=== PATIENT | female | born 1985 | race Caucasian/White ===

== ENCOUNTER 2021-12-15 08:30 | Emergency (ER) | payer OTHER | END 2021-12-15 09:13 | disposition home or self-care (01) | LOC: CSHERS 08:30 | DX: R22.43 Localized swelling, mass and lump, lower limb, bilateral (principal); R00.0 Tachycardia, unspecified; E11.9 Type 2 diabetes mellitus without complications; I10 Essential (primary) hypertension | CPT/HCPCS: 99283 ==

== ENCOUNTER 2021-12-16 15:47 | Outpatient (CLI) | payer OTHER | END 2021-12-16 15:48 | disposition home or self-care (01) | LOC: CSHULT 15:47 | PROVIDERS: ATTEND Physician Assistant | DX: M79.89 Other specified soft tissue disorders (principal) | CPT/HCPCS: 93970 ==

== ENCOUNTER 2022-05-28 11:35 | Emergency (ER) | payer OTHER ==
[2022-05-28 12:29] LABS: #Basophils 0.1 10x3/uL (0.0-0.2); #Eosinphils 0.1 10x3/uL (0.0-0.5); #Monocytes 0.6 10x3/uL (0.0-1.1); #Neutrophils 8.4 10x3/uL (1.5-8.4); %Basophils 0.6 % (0.0-2.0); %Eosinophils 1.2 % (0.0-6.0); %Lymphocytes 21.2 % (18.0-47.0); %Monocytes 5.2 % (0.0-10.0); %Neutrophils 70.9 % (40.0-75.0); Hemoglobin 16.6 g/dL (12.0-15.5); Mean Corpuscular HGB CONC 34.1 g/dL (32.0-36.0); Mean Platelet Volume 10.2 fl (7.4-10.4); Platelet Count 200 10x3/uL (150-450); RBC Distribution Width 13.4 % (11.5-14.5); Red Blood Cell (RBC) Count 5.35 10x6/uL (3.90-5.03); White Blood Cell (WBC) Count 11.8 10x3/uL (3.5-10.5)
[2022-05-28 12:54] LABS: ALT (SGPT) 37 U/L (8-55); AST (SGOT) 29 U/L (5-34); Albumin 3.7 g/dL (3.5-5.0); Alkaline Phosphatase 75 U/L (40-110); Anion Gap 16 mmol/L (10-20); BUN (Urea Nitrogen) 13 mg/dL (7.0-18.7); Bilirubin, Total 0.4 mg/dL (0.2-1.2); Calc. Creatinine Clearance 0 mL/min (70-130); Calcium 9.3 mg/dL (7.8-10.44); Carbon Dioxide 27 mmol/L (22-29); Chloride 96 mmol/L (98-107); Estimated GFR 101; Globulin 3.3 g/dL (2.4-3.5); Glucose 461 mg/dL (70-105); Potassium 4.7 mmol/L (3.5-5.1); Sodium 134 mmol/L (136-145)
== END 2022-05-28 13:50 | disposition left against medical advice (07) ==
LOC: CSHERS 11:35
DX: E87.2 Acidosis (principal); L02.215 Cutaneous abscess of perineum; R06.02 Shortness of breath; R00.0 Tachycardia, unspecified; E11.9 Type 2 diabetes mellitus without complications; I10 Essential (primary) hypertension; J44.9 Chronic obstructive pulmonary disease, unspecified; F17.210 Nicotine dependence, cigarettes, uncomplicated
CPT/HCPCS: 36416; 71045; 80053; 83605; 83880; 84484; 85025; 87040; 93005; 94760; 96360

== ENCOUNTER 2023-04-12 10:06 | Emergency (ER) | payer OTHER ==
[2023-04-12 11:14] LABS: #Basophils 0.1 10x3/uL (0.0-0.2); #Eosinphils 0.1 10x3/uL (0.0-0.5); #Monocytes 0.6 10x3/uL (0.0-1.1); #Neutrophils 9.9 10x3/uL (1.5-8.4); %Basophils 0.5 % (0.0-2.0); %Eosinophils 1.1 % (0.0-6.0); %Lymphocytes 17.9 % (18.0-47.0); %Monocytes 4.5 % (0.0-10.0); %Neutrophils 75.5 % (40.0-75.0); Hematocrit 47.5 % (34.9-44.5); Hemoglobin 16.5 g/dL (12.0-15.5); Mean Corpuscular HGB CONC 34.7 g/dL (32.0-36.0); Mean Corpuscular Volume 92.2 fl (81.6-98.3); Platelet Count 281 10x3/uL (150-450); RBC Distribution Width 13.2 % (11.5-14.5); Red Blood Cell (RBC) Count 5.15 10x6/uL (3.90-5.03); White Blood Cell (WBC) Count 13.1 10x3/uL (3.5-10.5)
[2023-04-12 11:20] LABS: BHCG - Serum Negative (NEGATIVE); Pregs Control Background? CLEAR/WHITE (CLR/WHITE); Pregs Control Bar Appear? YES (CONTROL BAR)
[2023-04-12 11:22] LABS: ALT (SGPT) 17 U/L (8-55); AST (SGOT) 16 U/L (5-34); Albumin 3.6 g/dL (3.5-5.0); Alkaline Phosphatase 71 U/L (40-110); Anion Gap 21 mmol/L (10-20); BUN (Urea Nitrogen) 15 mg/dL (7.0-18.7); Bilirubin, Total 0.3 mg/dL (0.2-1.2); Calc. Creatinine Clearance 0 mL/min (70-130); Calcium 9.4 mg/dL (7.8-10.44); Carbon Dioxide 24 mmol/L (22-29); Chloride 95 mmol/L (98-107); Estimated GFR 71; Globulin 3.6 g/dL (2.4-3.5); Potassium 4.4 mmol/L (3.5-5.1); Protein, Total 7.2 g/dL (6.0-8.3); Sodium 136 mmol/L (136-145)
[2023-04-12 11:24] LABS: Glucose 529 mg/dL (70-105)
[2023-04-12 11:37] LABS: Base Excess 0.9 mEq/L (-2 - +2); Calcium, Ionized (venous) 1.09 mmol/L (1.16-1.32); Chloride (VBG) 99 mmol/L (98-106); Hematocrit-VBG 46 % (36.0-47.0); Hemoglobin (Hb) 15.5 g/dL (11.7-15.5); Puncture Site Other Site; RapidComm Collect By lab; Sodium 135.2 mmol/L (133-146); pH (venous) 7.395 (7.32-7.43)
== END 2023-04-12 11:48 | disposition left against medical advice (07) ==
LOC: CSHERS 10:06
DX: A41.9 Sepsis, unspecified organism (principal); R65.20 Severe sepsis without septic shock; L02.214 Cutaneous abscess of groin; L30.4 Erythema intertrigo; E11.9 Type 2 diabetes mellitus without complications; J44.9 Chronic obstructive pulmonary disease, unspecified; F17.210 Nicotine dependence, cigarettes, uncomplicated; I10 Essential (primary) hypertension
CPT/HCPCS: 36415; 80053; 82010; 82805; 83605; 84703; 85025; 87040

== ENCOUNTER 2023-04-12 16:51 | Emergency (ER) | payer OTHER ==
[2023-04-12 17:27] LABS: #Basophils 0.1 10x3/uL (0.0-0.2); #Eosinphils 0.2 10x3/uL (0.0-0.5); #Monocytes 0.8 10x3/uL (0.0-1.1); #Neutrophils 8.1 10x3/uL (1.5-8.4); %Basophils 0.5 % (0.0-2.0); %Eosinophils 1.4 % (0.0-6.0); %Lymphocytes 26.5 % (18.0-47.0); %Monocytes 6.4 % (0.0-10.0); %Neutrophils 64.6 % (40.0-75.0); Hematocrit 45.9 % (34.9-44.5); Hemoglobin 16.3 g/dL (12.0-15.5); Mean Corpuscular HGB CONC 35.5 g/dL (32.0-36.0); Mean Corpuscular Hemoglobin 32.5 pg (27.0-33.0); Mean Corpuscular Volume 91.4 fl (81.6-98.3); Mean Platelet Volume 10.6 fl (7.4-10.4); Platelet Count 282 10x3/uL (150-450); RBC Distribution Width 13.3 % (11.5-14.5); Red Blood Cell (RBC) Count 5.02 10x6/uL (3.90-5.03); White Blood Cell (WBC) Count 12.5 10x3/uL (3.5-10.5)
[2023-04-12] MEDS ORDERED: Ketorolac Tromethamine 30 MG/ML VIAL ONE (18:09)
[2023-04-12] MEDS ORDERED: Morphine 4 MG/ML VIAL ONE (18:09)
[2023-04-12] MEDS ORDERED: HumaLOG 300 UNITS/3 ML VIAL SC PRN ×2 (18:58→19:30)
[2023-04-12] MEDS ORDERED: Ondansetron PF 4 MG/2 ML Vial IVP PRN (18:58)
[2023-04-12] MEDS ORDERED: Dextrose 50% Abboject 50 ML SYRINGE SLOW IVP PRN (18:58)
[2023-04-12] MEDS ORDERED: Ondansetron ODT 4 MG TAB PO PRN (18:58)
[2023-04-12] MEDS ORDERED: Glucagon 1 MG/ML KIT IM PRN (18:58)
[2023-04-12] MEDS ORDERED: Dextrose 5% in Water 1,000 ML IV PRN (18:58)
[2023-04-12] MEDS ORDERED: Acetaminophen 325 MG TAB PO PRN (18:58)
[2023-04-12] MEDS ORDERED: Sodium Chloride 0.9% 1,000 ML IV SCH (19:00)
[2023-04-12] MEDS ORDERED: Ventolin HFA Inhaler 60 PUFF INHALER INH PRN (19:02)
[2023-04-12] MEDS ORDERED: traMADol HCl 50 MG TAB PO PRN (19:04)
[2023-04-12] MEDS ORDERED: Polyethylene Glycol 3350 17 GM Packet PO PRN (19:04)
[2023-04-12] MEDS ORDERED: Cyclobenzaprine 10 MG TAB PO PRN (19:08)
[2023-04-12] MEDS ORDERED: Vancomycin 1 GM in Premix Bag 1 BAG IVPB SCH (19:15)
[2023-04-12] MEDS ORDERED: Electrolyte Replacement Protocol 1 EACH FS SCH (19:15)
[2023-04-12] MEDS ORDERED: Ipratropium/Albuterol 3 ML NEB NEB SCH (19:45)
[2023-04-12] MEDS ORDERED: Clindamycin/D5W 600 MG in Premix Bag 1 BAG IVPB SCH (21:00)
[2023-04-12] MEDS ORDERED: Atorvastatin Calcium 40 MG TAB PO SCH (21:00)
[2023-04-12] MEDS ORDERED: Nicotine 21 MG PATCH TD SCH (21:00)
[2023-04-12] MEDS ORDERED: Cefepime 1 GM in Sodium Chloride 0.9% 100 ML IVPB SCH (21:00)
[2023-04-13] MEDS ORDERED: Ipratropium/Albuterol 3 ML NEB NEB SCH (07:00)
[2023-04-13] MEDS ORDERED: Transdermal Patch Removal TOP SCH (21:00)
== END 2023-04-12 20:30 | disposition left against medical advice (07) ==
LOC: CSHERS 16:51
DX: A41.9 Sepsis, unspecified organism (principal); L30.4 Erythema intertrigo; L02.214 Cutaneous abscess of groin; E11.9 Type 2 diabetes mellitus without complications; F17.210 Nicotine dependence, cigarettes, uncomplicated; J44.9 Chronic obstructive pulmonary disease, unspecified
CPT/HCPCS: 10060; 36415; 36416; 80053; 82010; 82805; 83605; 84703; 85025; 87040; 96365; 96374; 96375; J1885; J2270; J3370; J3490; J7030

== ENCOUNTER 2023-04-21 21:23 | Emergency (ER) | payer OTHER ==
[2023-04-21 22:09] LABS: #Eosinphils 0.1 10x3/uL (0.0-0.5); #Monocytes 0.9 10x3/uL (0.0-1.1); #Neutrophils 10.2 10x3/uL (1.5-8.4); %Basophils 0.3 % (0.0-2.0); %Eosinophils 0.6 % (0.0-6.0); %Lymphocytes 18.8 % (18.0-47.0); %Monocytes 6.4 % (0.0-10.0); %Neutrophils 73.3 % (40.0-75.0); Hematocrit 45.9 % (34.9-44.5); Mean Corpuscular HGB CONC 34.9 g/dL (32.0-36.0); Mean Corpuscular Hemoglobin 32.2 pg (27.0-33.0); Mean Corpuscular Volume 92.4 fl (81.6-98.3); Mean Platelet Volume 10.3 fl (7.4-10.4); Platelet Count 261 10x3/uL (150-450); RBC Distribution Width 13.2 % (11.5-14.5); Red Blood Cell (RBC) Count 4.97 10x6/uL (3.90-5.03)
[2023-04-21 22:21] LABS: BHCG - Serum Negative (NEGATIVE); Pregs Control Background? CLEAR/WHITE (CLR/WHITE); Pregs Control Bar Appear? YES (CONTROL BAR)
[2023-04-21 22:25] LABS: ALT (SGPT) 45 U/L (8-55); AST (SGOT) 25 U/L (5-34); Acetaminophen Less than 10 mcg/mL (10.0-30.0); Albumin 3.7 g/dL (3.5-5.0); Alcohol Less than 10.0 mg/dL (Less than 10); Alkaline Phosphatase 57 U/L (40-110); Anion Gap 18 mmol/L (10-20); BUN (Urea Nitrogen) 15 mg/dL (7.0-18.7); Bilirubin, Total 0.8 mg/dL (0.2-1.2); CK (CPK) 80 U/L (29-168); Calc. Creatinine Clearance 0 mL/min (70-130); Calcium 9.9 mg/dL (7.8-10.44); Carbon Dioxide 29 mmol/L (22-29); Chloride 96 mmol/L (98-107); Estimated GFR 89; Globulin 3.1 g/dL (2.4-3.5); Glucose 287 mg/dL (70-105); Lipase 27 U/L (8-78); Potassium 3.7 mmol/L (3.5-5.1); Protein, Total 6.8 g/dL (6.0-8.3); Salicylate Less than 8.0 mg/dL (15.0-30.0); Sodium 139 mmol/L (136-145)
[2023-04-21 22:31] LABS: Troponin I Less than 0.010 ng/mL (< 0.028)
== END 2023-04-21 23:08 | disposition home or self-care (01) ==
LOC: CSHERS 21:23
DX: R11.10 Vomiting, unspecified (principal); R19.7 Diarrhea, unspecified; D86.0 Sarcoidosis of lung; E78.00 Pure hypercholesterolemia, unspecified; I10 Essential (primary) hypertension; K21.9 Gastro-esophageal reflux disease without esophagitis; F17.210 Nicotine dependence, cigarettes, uncomplicated; E11.9 Type 2 diabetes mellitus without complications; Z79.899 Other long term (current) drug therapy; Z79.84 Long term (current) use of oral hypoglycemic drugs
CPT/HCPCS: 80053; 80307; 82550; 83690; 84484; 84703; 85025; 93005; 96372; 96374; 96375

== ENCOUNTER 2023-04-25 19:40 | Emergency (ER) | payer OTHER ==
[~2023-04-25 19:40] MED LIST: Iopamidol 300 61% 100 ML VIAL FS ONE
[2023-04-25 20:37] LABS: #Basophils 0.1 10x3/uL (0.0-0.2); #Eosinphils 0.1 10x3/uL (0.0-0.5); #Neutrophils 10.7 10x3/uL (1.5-8.4); %Basophils 0.5 % (0.0-2.0); %Eosinophils 0.5 % (0.0-6.0); %Lymphocytes 22.7 % (18.0-47.0); %Monocytes 6.7 % (0.0-10.0); %Neutrophils 68.9 % (40.0-75.0); Hematocrit 48.2 % (34.9-44.5); Hemoglobin 16.9 g/dL (12.0-15.5); Mean Corpuscular HGB CONC 35.1 g/dL (32.0-36.0); Mean Corpuscular Volume 91.3 fl (81.6-98.3); Mean Platelet Volume 11.4 fl (7.4-10.4); Platelet Count 308 10x3/uL (150-450); RBC Distribution Width 13.6 % (11.5-14.5); Red Blood Cell (RBC) Count 5.28 10x6/uL (3.90-5.03); White Blood Cell (WBC) Count 15.5 10x3/uL (3.5-10.5)
[2023-04-25 21:28] LABS: ALT (SGPT) 48 U/L (8-55); AST (SGOT) 20 U/L (5-34); Albumin 3.5 g/dL (3.5-5.0); Alkaline Phosphatase 54 U/L (40-110); Anion Gap 15 mmol/L (10-20); BUN (Urea Nitrogen) 13 mg/dL (7.0-18.7); Bilirubin, Total 0.5 mg/dL (0.2-1.2); Calc. Creatinine Clearance 0 mL/min (70-130); Carbon Dioxide 33 mmol/L (22-29); Chloride 87 mmol/L (98-107); Estimated GFR 66; Globulin 3.3 g/dL (2.4-3.5); Glucose 332 mg/dL (70-105); Potassium 3.3 mmol/L (3.5-5.1); Protein, Total 6.8 g/dL (6.0-8.3); Sodium 132 mmol/L (136-145)
[2023-04-25 21:33] LABS: BHCG - Serum Negative (NEGATIVE); Pregs Control Background? CLEAR/WHITE (CLR/WHITE); Pregs Control Bar Appear? YES (CONTROL BAR)
[2023-04-25 21:35] LABS: Calcium 15.4 mg/dL (7.8-10.44)
[2023-04-25 21:59] LABS: Actual Bicarbonate (HCO3v) 30.6 mEq/L (22-28); Base Excess 6.6 mEq/L (-2 - +2); Calcium, Ionized (venous) 1.61 mmol/L (1.16-1.32); Chloride (VBG) 92 mmol/L (98-106); Hematocrit-VBG 48 % (36.0-47.0); Hemoglobin (Hb) 16.4 g/dL (11.7-15.5); Potassium (VBG) 3.19 mmol/L (3.70-5.30); Puncture Site Other Site; RapidComm Collect By CBN; Sodium 132.7 mmol/L (133-146); pH (venous) 7.489 (7.32-7.43)
[2023-04-25 22:24] LABS: Troponin I Less than 0.010 ng/mL (< 0.028)
[2023-04-25 23:44] LABS: Bilirubin Neg (Negative); Blood, Urine 25 (Negative); Clarity Slightly Cloudy (Clear); Glucose, Urine (Dipstick) Normal (Negative); Ketone, Urine Negative (Negative); Leukocyte 25 (Negative); Nitrite Positive (Negative); Protein, Urine (Dipstick) 100 mg/dl (Neg-Trace); Urobilinogen Normal mg/dL (Less than 2)
[2023-04-25 23:47] LABS: Lactic Acid 3.5 mmol/L (0.5-2.2)
[2023-04-26 00:14] LABS: Bacteria/HPF 3+ HPF (None Seen); CAUTI Indications for Culture Dysuria,urgency,freq; RBC/HPF 0-3 HPF (0-3); Squamous Epithelial 0-3 HPF (0-3)
[2023-04-26 00:16] LABS: Urine Culture Reflex No No
== END 2023-04-25 23:37 | disposition left against medical advice (07) ==
LOC: CSHERS 19:40
DX: Z53.29 Procedure and treatment not carried out because of patient's decision for other reasons (principal)
CPT/HCPCS: 36415; 71045; 74177; 80053; 81001; 82805; 83605; 83880; 84484; 84703; 85025; 85379; 87040; 93005; Q9967

== ENCOUNTER 2023-04-26 10:40 | Inpatient (IN) | payer OTHER ==
[2023-04-26] MEDS ORDERED: Iopamidol 370 76% 100 ML VIAL ONE (10:42)
[2023-04-26 11:38] LABS: #Basophils 0.1 10x3/uL (0.0-0.2); #Eosinphils 0.2 10x3/uL (0.0-0.5); #Monocytes 0.9 10x3/uL (0.0-1.1); #Neutrophils 11.1 10x3/uL (1.5-8.4); %Basophils 0.5 % (0.0-2.0); %Lymphocytes 18.1 % (18.0-47.0); %Neutrophils 73.9 % (40.0-75.0); Hematocrit 48.1 % (34.9-44.5); Hemoglobin 17.2 g/dL (12.0-15.5); Mean Corpuscular HGB CONC 35.8 g/dL (32.0-36.0); Mean Corpuscular Hemoglobin 32.6 pg (27.0-33.0); Mean Corpuscular Volume 91.3 fl (81.6-98.3); Mean Platelet Volume 10.3 fl (7.4-10.4); Platelet Count 275 10x3/uL (150-450); RBC Distribution Width 13.2 % (11.5-14.5); Red Blood Cell (RBC) Count 5.27 10x6/uL (3.90-5.03)
[2023-04-26] MEDS ORDERED: Lorazepam 2 MG/ML VIAL ONE (11:44)
[2023-04-26] MEDS ORDERED: cefTRIAXone (ROCEPHIN) 1 GM VIAL ONE (11:45)
[2023-04-26] MEDS ORDERED: Azithromycin 500 MG VIAL ONE (11:45)
[2023-04-26 11:52] LABS: ALT (SGPT) 50 U/L (8-55); AST (SGOT) 25 U/L (5-34); Albumin 3.6 g/dL (3.5-5.0); Alkaline Phosphatase 55 U/L (40-110); Anion Gap 15 mmol/L (10-20); BUN (Urea Nitrogen) 12 mg/dL (7.0-18.7); Bilirubin, Total 0.6 mg/dL (0.2-1.2); Calc. Creatinine Clearance 0 mL/min (70-130); Carbon Dioxide 32 mmol/L (22-29); Chloride 91 mmol/L (98-107); Estimated GFR 71; Globulin 3.5 g/dL (2.4-3.5); Glucose 292 mg/dL (70-105); Potassium 3.6 mmol/L (3.5-5.1); Protein, Total 7.1 g/dL (6.0-8.3); Sodium 134 mmol/L (136-145)
[2023-04-26] MEDS ORDERED: Promethazine HCl 25 MG in Sodium Chloride 0.9% 50 ML IVPB SCH (12:00)
[2023-04-26 13:49] LABS: SARS-CoV-2 NAA Rapid Test Not Detected (NotDetected)
[2023-04-26] MEDS ORDERED: Ondansetron PF 4 MG/2 ML Vial IVP PRN (16:18)
[2023-04-26] MEDS ORDERED: Acetaminophen 650 MG/20.3 ML UDCUP PO PRN (22:03)
[2023-04-26] MEDS: methylPREDNISolone Sod Succ 40 MG VIAL IVP SCH (23:55)
[2023-04-27] MEDS ORDERED: Nicotine 21 MG PATCH TOP PRN (05:02)
[2023-04-27] MEDS: methylPREDNISolone Sod Succ 40 MG VIAL IVP SCH ×4 (05:27→22:19)
[2023-04-27] MEDS ORDERED: ALPRAZolam 0.25 MG TAB PO PRN (05:37)
[2023-04-27] MEDS ORDERED: Lactated Ringer's 1,000 ML IV SCH (06:15)
[2023-04-27] MEDS: Ipratropium/Albuterol 3 ML NEB NEB SCH ×3 (07:05→18:42)
[2023-04-27] MEDS ORDERED: Dextrose 5% in Water 1,000 ML IV PRN (08:11)
[2023-04-27] MEDS ORDERED: Dextrose 50% Abboject 50 ML SYRINGE SLOW IVP PRN (08:11)
[2023-04-27] MEDS ORDERED: Glucagon 1 MG/ML KIT IM PRN (08:11)
[2023-04-27] MEDS: DULoxetine 30 MG CAP PO SCH ×2 (09:04→09:12)
[2023-04-27] MEDS: Sodium Chloride 0.9% 1,000 ML IV SCH ×3 (09:30→20:23)
[2023-04-27] MEDS ORDERED: Calcitonin,Salmon,Synthetic 400 UNITS/2 ML SC SCH (10:30)
[2023-04-27] MEDS ORDERED: Zoledronic Acid 4 MG in Sodium Chloride 0.9% 100 ML IVPB SCH (10:30)
[2023-04-27] MEDS: cefTRIAXone\\ROCEPHIN 2 GM in Sodium Chloride 0.9% 100 ML IVPB SCH (12:00)
[2023-04-27] MEDS: HumaLOG 300 UNITS/3 ML VIAL SC PRN ×3 (12:50→22:13)
[2023-04-27] MEDS: Azithromycin 500 MG in Sodium Chloride 0.9% 250 ML 250 ML IVPB SCH (13:09)
[2023-04-27] MEDS: ALPRAZolam 0.25 MG TAB PO PRN ×2 (14:44→20:37)
[2023-04-27] MEDS ORDERED: Lantus 1000 UNITS/10 ML VIAL SC SCH (16:00)
[2023-04-27] MEDS ORDERED: Nicotine 21 MG PATCH TD SCH (16:00)
[2023-04-27 16:12] LABS: #Monocytes 0.7 10x3/uL (0.0-1.1); #Neutrophils 11.9 10x3/uL (1.5-8.4); %Basophils 0.1 % (0.0-2.0); %Eosinophils 0.1 % (0.0-6.0); %Monocytes 4.9 % (0.0-10.0); %Neutrophils 87.2 % (40.0-75.0); Hematocrit 45.5 % (34.9-44.5); Hemoglobin 15.9 g/dL (12.0-15.5); Mean Corpuscular HGB CONC 34.9 g/dL (32.0-36.0); Mean Corpuscular Hemoglobin 32.3 pg (27.0-33.0); Mean Corpuscular Volume 92.3 fl (81.6-98.3); Mean Platelet Volume 10.7 fl (7.4-10.4); Platelet Count 241 10x3/uL (150-450); RBC Distribution Width 13.2 % (11.5-14.5); Red Blood Cell (RBC) Count 4.93 10x6/uL (3.90-5.03); White Blood Cell (WBC) Count 13.6 10x3/uL (3.5-10.5)
[2023-04-27 16:29] LABS: Anion Gap 16 mmol/L (10-20); BUN (Urea Nitrogen) 16 mg/dL (7.0-18.7); Calc. Creatinine Clearance 138 mL/min (70-130); Calcium 10.3 mg/dL (7.8-10.44); Carbon Dioxide 27 mmol/L (22-29); Chloride 93 mmol/L (98-107); Estimated GFR 87; Glucose 462 mg/dL (70-105); Potassium 3.7 mmol/L (3.5-5.1); Sodium 132 mmol/L (136-145)
[2023-04-27] MEDS ORDERED: carBAMazepine 200 MG TAB PO SCH (21:00)
[2023-04-28] MEDS: Ipratropium/Albuterol 3 ML NEB NEB SCH ×4 (02:36→09:51)
[2023-04-28] MEDS: Sodium Chloride 0.9% 1,000 ML IV SCH (03:28)
[2023-04-28 04:26] LABS: #Monocytes 0.4 10x3/uL (0.0-1.1); #Neutrophils 12.2 10x3/uL (1.5-8.4); %Basophils 0.1 % (0.0-2.0); %Eosinophils 0.1 % (0.0-6.0); %Lymphocytes 6.1 % (18.0-47.0); %Monocytes 3.2 % (0.0-10.0); %Neutrophils 89.9 % (40.0-75.0); Hematocrit 43.5 % (34.9-44.5); Mean Corpuscular HGB CONC 34.5 g/dL (32.0-36.0); Mean Corpuscular Hemoglobin 31.8 pg (27.0-33.0); Mean Corpuscular Volume 92.4 fl (81.6-98.3); Platelet Count 196 10x3/uL (150-450); RBC Distribution Width 13.2 % (11.5-14.5); Red Blood Cell (RBC) Count 4.71 10x6/uL (3.90-5.03); White Blood Cell (WBC) Count 13.5 10x3/uL (3.5-10.5)
[2023-04-28 04:28] LABS: Anion Gap 14 mmol/L (10-20); BUN (Urea Nitrogen) 13 mg/dL (7.0-18.7); Calc. Creatinine Clearance 155 mL/min (70-130); Calcium 8.7 mg/dL (7.8-10.44); Carbon Dioxide 25 mmol/L (22-29); Chloride 98 mmol/L (98-107); Estimated GFR 100; Glucose 375 mg/dL (70-105); Potassium 3.9 mmol/L (3.5-5.1); Sodium 133 mmol/L (136-145)
[2023-04-28 05:13] VITALS: BMI 46.3
[2023-04-28] MEDS: methylPREDNISolone Sod Succ 40 MG VIAL IVP SCH (05:42)
[2023-04-28] MEDS: HumaLOG 300 UNITS/3 ML VIAL SC PRN ×2 (05:58→11:16)
[2023-04-28] MEDS ORDERED: Lantus 1000 UNITS/10 ML VIAL SC SCH ×3 (09:00→11:30)
[2023-04-28] MEDS ORDERED: carBAMazepine 200 MG TAB PO SCH (09:00)
[2023-04-28] MEDS ORDERED: predniSONE 20 MG TAB PO SCH (09:00)
[2023-04-28] MEDS ORDERED: Azithromycin 500 MG VIAL ONE (11:06)
[2023-04-28] MEDS: cefTRIAXone\\ROCEPHIN 2 GM in Sodium Chloride 0.9% 100 ML IVPB SCH (11:16)
[2023-04-28] MEDS: Azithromycin 500 MG in Sodium Chloride 0.9% 250 ML 250 ML IVPB SCH (11:23)
[2023-04-28 12:36] VITALS: BP 133/67; TEMP 98.3
== END 2023-04-28 13:30 | disposition home or self-care (01) | DRG 189 ==
LOC: CSHERS 10:40 → CSHTELE 21:57
PROVIDERS: ADMIT Internal Medicine; ATTEND Internal Medicine
DX: J96.01 Acute respiratory failure with hypoxia (principal); J44.1 Chronic obstructive pulmonary disease with (acute) exacerbation; R45.851 Suicidal ideations; E87.1 Hypo-osmolality and hyponatremia; F41.9 Anxiety disorder, unspecified; F32.A Depression, unspecified; E83.52 Hypercalcemia; E88.09 Other disorders of plasma-protein metabolism, not elsewhere classified; Z20.822 Contact with and (suspected) exposure to COVID-19; E11.9 Type 2 diabetes mellitus without complications; K21.9 Gastro-esophageal reflux disease without esophagitis; F17.210 Nicotine dependence, cigarettes, uncomplicated; Z88.0 Allergy status to penicillin; Z88.8 Allergy status to other drugs, medicaments and biological substances; Z79.899 Other long term (current) drug therapy; Z79.4 Long term (current) use of insulin; Z98.890 Other specified postprocedural states; Z82.49 Family history of ischemic heart disease and other diseases of the circulatory system
CPT/HCPCS: 36415; 36416; 71045; 71275; 74177; 80048; 80053; 81001; 82040; 82805; 83605; 83880; 83970; 84443; 84484; 84703; 85025; 85379; 87040; 93005; 94640; 94760; J0456; J0630; J0696; J1815; J2060; J2550; J2920; J3489; J3490; J7050; J7512; J7620; Q9967

== ENCOUNTER 2023-05-05 20:03 | Emergency (ER) | payer OTHER | END 2023-05-05 20:33 | disposition left against medical advice (07) | LOC: CSHERS 20:03 | DX: Z53.21 Procedure and treatment not carried out due to patient leaving prior to being seen by health care provider (principal) ==

== ENCOUNTER 2023-05-11 16:25 | Emergency (ER) | payer OTHER ==
[2023-05-11 18:03] LABS: ALT (SGPT) 23 U/L (8-55); AST (SGOT) 19 U/L (5-34); Albumin 3.1 g/dL (3.5-5.0); Alkaline Phosphatase 55 U/L (40-110); Anion Gap 22 mmol/L (10-20); BUN (Urea Nitrogen) 14 mg/dL (7.0-18.7); Bilirubin, Total 0.2 mg/dL (0.2-1.2); Calc. Creatinine Clearance 0 mL/min (70-130); Calcium 9.2 mg/dL (7.8-10.44); Carbon Dioxide 19 mmol/L (22-29); Chloride 98 mmol/L (98-107); Estimated GFR 83; Globulin 3.5 g/dL (2.4-3.5); Glucose 345 mg/dL (70-105); Potassium 4.2 mmol/L (3.5-5.1); Protein, Total 6.6 g/dL (6.0-8.3); Sodium 135 mmol/L (136-145)
[2023-05-11 18:06] LABS: #Basophils 0.1 10x3/uL (0.0-0.2); #Eosinphils 0.1 10x3/uL (0.0-0.5); #Monocytes 0.5 10x3/uL (0.0-1.1); #Neutrophils 8.4 10x3/uL (1.5-8.4); %Basophils 0.4 % (0.0-2.0); %Lymphocytes 24.9 % (18.0-47.0); %Neutrophils 69.1 % (40.0-75.0); Hematocrit 44.2 % (34.9-44.5); Hemoglobin 15.4 g/dL (12.0-15.5); Mean Corpuscular HGB CONC 34.8 g/dL (32.0-36.0); Mean Corpuscular Volume 91.9 fl (81.6-98.3); Mean Platelet Volume 10.2 fl (7.4-10.4); Platelet Count 250 10x3/uL (150-450); RBC Distribution Width 13.3 % (11.5-14.5); Red Blood Cell (RBC) Count 4.81 10x6/uL (3.90-5.03); White Blood Cell (WBC) Count 12.1 10x3/uL (3.5-10.5)
== END 2023-05-11 17:51 | disposition left against medical advice (07) ==
LOC: CSHERS 16:25
DX: R50.9 Fever, unspecified (principal); F17.210 Nicotine dependence, cigarettes, uncomplicated; I10 Essential (primary) hypertension; J44.9 Chronic obstructive pulmonary disease, unspecified
CPT/HCPCS: 80053; 85025; 85652; 86140; 99283

== ENCOUNTER 2023-07-23 14:19 | Emergency (ER) | payer OTHER | END 2023-07-23 14:57 | disposition left against medical advice (07) | LOC: CSHERS 14:19 | DX: Z53.21 Procedure and treatment not carried out due to patient leaving prior to being seen by health care provider (principal) ==

== ENCOUNTER 2023-07-23 23:27 | Emergency (ER) | payer OTHER | END 2023-07-24 00:12 | disposition home or self-care (01) | LOC: CSHERS 23:27 | DX: L02.214 Cutaneous abscess of groin (principal); E78.5 Hyperlipidemia, unspecified; I10 Essential (primary) hypertension; F17.210 Nicotine dependence, cigarettes, uncomplicated; Z79.899 Other long term (current) drug therapy | CPT/HCPCS: 99282 ==

== ENCOUNTER 2024-06-04 22:36 | Emergency (ER) | payer OTHER ==
[2024-06-04] MEDS ORDERED: fentaNYL 50 mcg/mL 1 mL Vial ONE (23:00)
[2024-06-04] MEDS ORDERED: methylPREDNISolone Sod Succ/PF 125 MG/2 ML VIAL ONE (23:00)
[2024-06-04] MEDS ORDERED: Ipratropium/Albuterol 3 ML NEB ONE ×2 (23:12→23:47)
[2024-06-05 00:01] LABS: Anion Gap 15 mmol/L (10-20); BUN (Urea Nitrogen) 16 mg/dL (7.0-18.7); Calc. Creatinine Clearance 0 mL/min (70-130); Carbon Dioxide 28 mmol/L (22-29); Chloride 97 mmol/L (98-107); Critical Call Chemistry NUR.VM6@2358; Estimated GFR 90; Glucose 412 mg/dL (70-105); Potassium 4.3 mmol/L (3.5-5.1); Sodium 136 mmol/L (136-145); Troponin I Less than 0.010 ng/mL (< 0.028)
[2024-06-05 00:11] LABS: Influenza A by NAA Not Detected (NotDetected); Influenza B by NAA Not Detected (NotDetected); SARS-CoV-2 NAA Rapid Test Not Detected (NotDetected)
== END 2024-06-05 01:14 | disposition home or self-care (01) ==
LOC: CSHERS 22:36
DX: J44.1 Chronic obstructive pulmonary disease with (acute) exacerbation (principal); R00.0 Tachycardia, unspecified; F17.210 Nicotine dependence, cigarettes, uncomplicated; E11.9 Type 2 diabetes mellitus without complications; I10 Essential (primary) hypertension
CPT/HCPCS: 71046; 80048; 83880; 84484; 85379; 93005; 94640; 94760; J2919; J3010; J7620

== ENCOUNTER 2024-07-31 19:19 | Emergency (ER) | payer OTHER | END 2024-07-31 19:56 | disposition home or self-care (01) | LOC: CSHERS 19:19 | DX: L02.214 Cutaneous abscess of groin (principal); R00.0 Tachycardia, unspecified; L30.4 Erythema intertrigo; E11.9 Type 2 diabetes mellitus without complications; I10 Essential (primary) hypertension; J44.89 Other specified chronic obstructive pulmonary disease; F17.210 Nicotine dependence, cigarettes, uncomplicated; Z55.6 Problems related to health literacy; Z79.899 Other long term (current) drug therapy | CPT/HCPCS: 99282 ==

== ENCOUNTER 2024-08-08 02:42 | Emergency (ER) | payer OTHER | END 2024-08-08 03:30 | disposition home or self-care (01) | LOC: CSHERS 02:42 | DX: L02.214 Cutaneous abscess of groin (principal); L03.314 Cellulitis of groin; B35.6 Tinea cruris; E11.9 Type 2 diabetes mellitus without complications; F17.210 Nicotine dependence, cigarettes, uncomplicated; Z79.4 Long term (current) use of insulin | CPT/HCPCS: 93005; 93010; 99284 ==

== ENCOUNTER 2024-09-29 15:04 | Inpatient (IN) | payer OTHER ==
[~2024-09-29 15:04] MED LIST changes: -Iopamidol 300 61% 100 ML VIAL FS ONE; +Magnevist 469MG/ML 20 ML VIAL ONE
[2024-09-29 15:50] LABS: #Basophils 0.03 10x3/uL (0.0-0.2); #Eosinophils 0.15 10x3/uL (0.0-0.5); #Monocytes 0.78 10x3/uL (0.0-1.1); %Basophils 0.2 % (0.0-2.0); %Eosinophils 1.2 % (0.0-6.0); %Lymphocytes 18.6 % (18.0-47.0); %Monocytes 6.5 % (0.0-10.0); %Neutrophils 73.1 % (40.0-75.0); Hemoglobin 17.1 g/dL (12.0-15.5); Mean Corpuscular HGB CONC 33.5 g/dL (32.0-36.0); Mean Corpuscular Volume 95.3 fL (81.6-98.3); Mean Platelet Volume 10.4 fL (7.4-10.4); Platelet Count 262 10x3/uL (150-450); RBC Distribution Width 13.6 % (11.5-14.5); Red Blood Cell (RBC) Count 5.35 10x6/uL (3.90-5.03); White Blood Cell (WBC) Count 12.05 10x3/uL (3.5-10.5)
[2024-09-29 15:55] LABS: ALT (SGPT) 34 U/L (Less than 34); AST (SGOT) 28 U/L (11-34); Alkaline Phosphatase 64 U/L (40-110); Anion Gap 16 mmol/L (10-20); BUN (Urea Nitrogen) 18 mg/dL (7.0-18.7); Bilirubin, Total 0.4 mg/dL (0.3-1.2); Calc. Creatinine Clearance 0 mL/min (70-130); Calcium 9.1 mg/dL (7.8-10.44); Carbon Dioxide 24 mmol/L (22-29); Chloride 101 mmol/L (98-107); Estimated GFR 108; Globulin 3.9 g/dL (2.4-3.5); Glucose 292 mg/dL (70-105); Potassium 4.4 mmol/L (3.5-5.1); Protein, Total 6.9 g/dL (6.0-8.3); Sodium 137 mmol/L (136-145)
[2024-09-29] MEDS ORDERED: Calcium Carbonate 500 MG ChewTAB PO PRN (16:17)
[2024-09-29] MEDS ORDERED: Senokot S 8.6-50 MG TAB PO PRN (16:17)
[2024-09-29] MEDS ORDERED: Acetaminophen 325 MG TAB PO PRN (16:17)
[2024-09-29] MEDS ORDERED: Ondansetron PF 4 MG/2 ML Vial IVP PRN (16:17)
[2024-09-29] MEDS ORDERED: clonazePAM 0.5 MG TAB PO PRN (16:18)
[2024-09-29] MEDS ORDERED: Dextrose 50% Abboject 50 ML SYRINGE SLOW IVP PRN (16:21)
[2024-09-29] MEDS ORDERED: Dextrose 5% in Water 1,000 ML IV PRN (16:21)
[2024-09-29] MEDS ORDERED: Glucagon 1 MG/ML KIT IM PRN (16:21)
[2024-09-29] MEDS ORDERED: Insulin Lispro 100 UNIT/ML 10 ML VIAL SC PRN (16:21)
[2024-09-29] MEDS ORDERED: HYDROcodone/Acetaminophen 5/325 mg Tablet ONE (17:05)
[2024-09-29 18:51] VITALS: BMI 45.9
[2024-09-29] MEDS ORDERED: Ipratropium/Albuterol 3 ML NEB NEB PRN (19:00)
[2024-09-29] MEDS: Sodium Chloride 0.9% 1,000 ML IV SCH (20:35)
[2024-09-29] MEDS: Enoxaparin 40 MG (0.4 mL) SYRINGE SC SCH (20:35)
[2024-09-29] MEDS: Nicotine 14 MG PATCH TD SCH (20:36)
[2024-09-29] MEDS: Cefepime 2 GM in Sodium Chloride 0.9% 100 ML IVPB SCH (20:36)
[2024-09-29] MEDS: traMADol HCl 50 MG TAB PO PRN (20:55)
[2024-09-29] MEDS: Lantus 1000 UNITS/10 ML VIAL SC SCH (21:01)
[2024-09-29] MEDS: Mupirocin 2% Ointment 22 GM Tube TOP SCH (21:03)
[2024-09-29] MEDS: Metoprolol Succinate XL 50 MG ER.TAB PO SCH (23:31)
[2024-09-29] MEDS: Atorvastatin Calcium 10 MG TAB PO SCH (23:32)
[2024-09-29] MEDS: Morphine 2 MG/ML VIAL SLOW IVP PRN (23:33)
[2024-09-30 03:50] LABS: #Basophils 0.03 10x3/uL (0.0-0.2); #Eosinophils 0.15 10x3/uL (0.0-0.5); #Monocytes 0.63 10x3/uL (0.0-1.1); #Neutrophils 7.01 10x3/uL (1.5-8.4); %Basophils 0.3 % (0.0-2.0); %Eosinophils 1.4 % (0.0-6.0); %Lymphocytes 24.2 % (18.0-47.0); %Monocytes 6.1 % (0.0-10.0); %Neutrophils 67.7 % (40.0-75.0); Hematocrit 46.3 % (34.9-44.5); Hemoglobin 15.9 g/dL (12.0-15.5); Mean Corpuscular HGB CONC 34.3 g/dL (32.0-36.0); Mean Corpuscular Hemoglobin 32.8 pg (27.0-33.0); Mean Corpuscular Volume 95.5 fL (81.6-98.3); Mean Platelet Volume 10.3 fL (7.4-10.4); Platelet Count 216 10x3/uL (150-450); RBC Distribution Width 13.8 % (11.5-14.5); Red Blood Cell (RBC) Count 4.85 10x6/uL (3.90-5.03); White Blood Cell (WBC) Count 10.35 10x3/uL (3.5-10.5)
[2024-09-30 04:01] LABS: Vancomycin, Random 24.3 ug/mL (See Comment)
[2024-09-30 04:06] LABS: ALT (SGPT) 22 U/L (Less than 34); AST (SGOT) 13 U/L (11-34); Albumin 2.6 g/dL (3.1-4.5); Alkaline Phosphatase 58 U/L (40-110); Anion Gap 11 mmol/L (10-20); BUN (Urea Nitrogen) 15 mg/dL (7.0-18.7); Bilirubin, Total 0.3 mg/dL (0.3-1.2); Calc. Creatinine Clearance 284 mL/min (70-130); Calcium 8.9 mg/dL (7.8-10.44); Carbon Dioxide 28 mmol/L (22-29); Cardiac Risk 10.1 (Less than 4.5); Chloride 105 mmol/L (98-107); Cholesterol 273 mg/dl (< 200 Desired); Estimated GFR 119; Globulin 3.6 g/dL (2.4-3.5); Glucose 176 mg/dL (70-105); HDL Cholesterol 27 mg/dL (>60 Neg Risk); Potassium 4.1 mmol/L (3.5-5.1); Protein, Total 6.2 g/dL (6.0-8.3); Sodium 140 mmol/L (136-145); Triglycerides 670 mg/dL (Less than 150)
[2024-09-30] MEDS: Insulin Lispro 100 UNIT/ML 10 ML VIAL SC PRN (06:13)
[2024-09-30] MEDS: Vancomycin 1.5 GM, Admixture Fee 1 EACH in Sodium Chloride 0.9% 250 ML 300 ML IVPB SCH (09:27)
[2024-09-30] MEDS: Nicotine 21 MG PATCH TD SCH (09:28)
[2024-09-30 12:35] LABS: Hemoglobin A1c 7.8 % (4.0-6.0)
[2024-09-30 14:46] VITALS: BMI 45.9
[2024-09-30] MEDS: QUEtiapine 100 MG TAB PO SCH (21:26)
[2024-09-30] MEDS: Cyclobenzaprine 10 MG TAB PO PRN (21:26)
[2024-09-30] MEDS: Atorvastatin Calcium 40 MG TAB PO SCH (21:29)
[2024-09-30] MEDS: Doxycycline 100 MG CAP PO SCH (21:29)
[2024-10-01 03:50] LABS: #Basophils 0.03 10x3/uL (0.0-0.2); #Eosinophils 0.19 10x3/uL (0.0-0.5); #Monocytes 0.59 10x3/uL (0.0-1.1); #Neutrophils 5.89 10x3/uL (1.5-8.4); %Basophils 0.3 % (0.0-2.0); %Eosinophils 2.1 % (0.0-6.0); %Monocytes 6.4 % (0.0-10.0); Hematocrit 43.9 % (34.9-44.5); Hemoglobin 15.2 g/dL (12.0-15.5); Mean Corpuscular HGB CONC 34.6 g/dL (32.0-36.0); Mean Corpuscular Hemoglobin 32.5 pg (27.0-33.0); Mean Corpuscular Volume 93.8 fL (81.6-98.3); Mean Platelet Volume 10.2 fL (7.4-10.4); Platelet Count 214 10x3/uL (150-450); RBC Distribution Width 13.7 % (11.5-14.5); Red Blood Cell (RBC) Count 4.68 10x6/uL (3.90-5.03); White Blood Cell (WBC) Count 9.21 10x3/uL (3.5-10.5)
[2024-10-01 04:10] LABS: Anion Gap 14 mmol/L (10-20); BUN (Urea Nitrogen) 12 mg/dL (7.0-18.7); Calc. Creatinine Clearance 324 mL/min (70-130); Calcium 9.2 mg/dL (7.8-10.44); Carbon Dioxide 24 mmol/L (22-29); Chloride 106 mmol/L (98-107); Estimated GFR 122; Glucose 172 mg/dL (70-105); Magnesium 1.6 mg/dL (1.6-2.6); Potassium 3.8 mmol/L (3.5-5.1); Sodium 140 mmol/L (136-145)
[2024-10-01 04:13] VITALS: TEMP 98.3
[2024-10-01 09:45] VITALS: BP 133/85
== END 2024-10-01 11:53 | disposition home or self-care (01) | DRG 638 ==
LOC: CSHERS 15:04 → SUATTDRO 15:04 → CSHTELE 16:15
PROVIDERS: ADMIT Internal Medicine; ATTEND Family Medicine
DX: E11.621 Type 2 diabetes mellitus with foot ulcer (principal); Z68.42 Body mass index [BMI] 45.0-49.9, adult; E66.01 Morbid (severe) obesity due to excess calories; F17.210 Nicotine dependence, cigarettes, uncomplicated; E78.5 Hyperlipidemia, unspecified; I10 Essential (primary) hypertension; L97.519 Non-pressure chronic ulcer of other part of right foot with unspecified severity; D72.829 Elevated white blood cell count, unspecified; E11.65 Type 2 diabetes mellitus with hyperglycemia; D75.1 Secondary polycythemia; F41.9 Anxiety disorder, unspecified; E11.42 Type 2 diabetes mellitus with diabetic polyneuropathy; F32.A Depression, unspecified; E11.43 Type 2 diabetes mellitus with diabetic autonomic (poly)neuropathy; K31.84 Gastroparesis; Z88.0 Allergy status to penicillin; Z88.8 Allergy status to other drugs, medicaments and biological substances; Z71.6 Tobacco abuse counseling; Z79.899 Other long term (current) drug therapy
CPT/HCPCS: 36415; 36416; 80048; 80053; 80061; 80202; 83036; 83735; 85025; 86140; 87040; 87081; 94760; 97139; 99284; J0692; J1650; J1815; J2272; J3370; J7030; J7050

== ENCOUNTER 2024-10-14 16:55 | Inpatient (IN) | payer MEDICAID, OTHER ==
[2024-10-14] MEDS ORDERED: Morphine 4 MG/ML VIAL ONE (18:36)
[2024-10-14] MEDS ORDERED: Cefepime 2 GM VIAL ONE (18:37)
[2024-10-14 19:03] LABS: #Basophils 0.06 10x3/uL (0.0-0.2); #Eosinophils 0.16 10x3/uL (0.0-0.5); #Monocytes 0.65 10x3/uL (0.0-1.1); #Neutrophils 8.59 10x3/uL (1.5-8.4); %Basophils 0.5 % (0.0-2.0); %Eosinophils 1.3 % (0.0-6.0); %Lymphocytes 20.6 % (18.0-47.0); %Monocytes 5.4 % (0.0-10.0); %Neutrophils 71.5 % (40.0-75.0); Hematocrit 47.8 % (34.9-44.5); Hemoglobin 16.4 g/dL (12.0-15.5); Mean Corpuscular HGB CONC 34.3 g/dL (32.0-36.0); Mean Corpuscular Hemoglobin 32.5 pg (27.0-33.0); Mean Corpuscular Volume 94.8 fL (81.6-98.3); Mean Platelet Volume 10.4 fL (7.4-10.4); Platelet Count 242 10x3/uL (150-450); RBC Distribution Width 13.6 % (11.5-14.5); Red Blood Cell (RBC) Count 5.04 10x6/uL (3.90-5.03); White Blood Cell (WBC) Count 12.02 10x3/uL (3.5-10.5)
[2024-10-14 19:21] LABS: ALT (SGPT) 18 U/L (Less than 34); AST (SGOT) 16 U/L (11-34); Albumin 2.8 g/dL (3.1-4.5); Alkaline Phosphatase 86 U/L (40-110); Anion Gap 14 mmol/L (10-20); BUN (Urea Nitrogen) 14 mg/dL (7.0-18.7); Bilirubin, Total 0.2 mg/dL (0.3-1.2); Calc. Creatinine Clearance 0 mL/min (70-130); Calcium 8.4 mg/dL (7.8-10.44); Carbon Dioxide 28 mmol/L (22-29); Chloride 102 mmol/L (98-107); Estimated GFR 113; Globulin 3.7 g/dL (2.4-3.5); Glucose 249 mg/dL (70-105); Potassium 4.2 mmol/L (3.5-5.1); Protein, Total 6.5 g/dL (6.0-8.3); Sodium 140 mmol/L (136-145)
[2024-10-14 19:34] LABS: BHCG - Serum Negative (NEGATIVE); Pregs Control Background? CLEAR/WHITE (CLR/WHITE); Pregs Control Bar Appear? YES (CONTROL BAR)
[2024-10-14 21:40] VITALS: BMI 44.1
[2024-10-14] MEDS ORDERED: Communication Order-Pharmacy FS PRN (23:18)
[2024-10-14] MEDS ORDERED: Ondansetron ODT 4 MG TAB PO PRN (23:19)
[2024-10-14] MEDS ORDERED: Ondansetron PF 4 MG/2 ML Vial IVP PRN (23:19)
[2024-10-14] MEDS ORDERED: traMADol HCl 50 MG TAB PO PRN (23:19)
[2024-10-14] MEDS ORDERED: Acetaminophen 325 MG TAB PO PRN (23:19)
[2024-10-14] MEDS ORDERED: Senokot S 8.6-50 MG TAB PO PRN (23:19)
[2024-10-14] MEDS ORDERED: Glucagon 1 MG/ML KIT IM PRN (23:23)
[2024-10-14] MEDS ORDERED: Dextrose 50% Abboject 50 ML SYRINGE SLOW IVP PRN (23:23)
[2024-10-14] MEDS ORDERED: Dextrose 5% in Water 1,000 ML IV PRN (23:23)
[2024-10-14] MEDS ORDERED: Cyclobenzaprine 10 MG TAB PO PRN (23:25)
[2024-10-14] MEDS ORDERED: Ventolin HFA Inhaler 60 PUFF INHALER INH PRN (23:25)
[2024-10-14] MEDS ORDERED: Ipratropium/Albuterol 3 ML NEB NEB PRN (23:25)
[2024-10-14] MEDS: Nicotine 21 MG PATCH TD SCH (23:40)
[2024-10-14] MEDS: Morphine 4 MG/ML VIAL SLOW IVP PRN (23:40)
[2024-10-14] MEDS: Sodium Chloride 0.9% 1,000 ML IV SCH (23:41)
[2024-10-14] MEDS: VANCOMYCIN 2 GRAM/400 ML BAG 2 GM in Premix 1 BAG IVPB SCH (23:59)
[2024-10-15 03:39] LABS: #Basophils 0.04 10x3/uL (0.0-0.2); #Eosinophils 0.18 10x3/uL (0.0-0.5); #Monocytes 0.81 10x3/uL (0.0-1.1); #Neutrophils 9.21 10x3/uL (1.5-8.4); %Basophils 0.3 % (0.0-2.0); %Eosinophils 1.3 % (0.0-6.0); %Monocytes 5.8 % (0.0-10.0); %Neutrophils 66.1 % (40.0-75.0); Hematocrit 45.4 % (34.9-44.5); Hemoglobin 15.5 g/dL (12.0-15.5); Mean Corpuscular HGB CONC 34.1 g/dL (32.0-36.0); Mean Corpuscular Hemoglobin 32.7 pg (27.0-33.0); Mean Corpuscular Volume 95.8 fL (81.6-98.3); Mean Platelet Volume 9.9 fL (7.4-10.4); Platelet Count 239 10x3/uL (150-450); RBC Distribution Width 13.8 % (11.5-14.5); Red Blood Cell (RBC) Count 4.74 10x6/uL (3.90-5.03); White Blood Cell (WBC) Count 13.94 10x3/uL (3.5-10.5)
[2024-10-15 03:59] LABS: Anion Gap 14 mmol/L (10-20); BUN (Urea Nitrogen) 12 mg/dL (7.0-18.7); Calc. Creatinine Clearance 283 mL/min (70-130); Calcium 8.4 mg/dL (7.8-10.44); Carbon Dioxide 24 mmol/L (22-29); Chloride 107 mmol/L (98-107); Estimated GFR 120; Glucose 129 mg/dL (70-105); Magnesium 1.4 mg/dL (1.6-2.6); Potassium 3.7 mmol/L (3.5-5.1); Sodium 141 mmol/L (136-145)
[2024-10-15] MEDS: Cefepime 2 GM in Sodium Chloride 0.9% 100 ML IVPB SCH (05:53)
[2024-10-15] MEDS: Metoprolol Succinate XL 50 MG ER.TAB PO SCH (08:44)
[2024-10-15] MEDS: Lantus 1000 UNITS/10 ML VIAL SC SCH ×2 (08:44→20:25)
[2024-10-15] MEDS: QUEtiapine 25 MG TAB PO SCH (08:44)
[2024-10-15] MEDS: Dapagliflozin Propanediol 10 MG TAB PO SCH (08:45)
[2024-10-15] MEDS: Pantoprazole 40 MG DR.TAB PO SCH (08:45)
[2024-10-15] MEDS: Enoxaparin 40 MG (0.4 mL) SYRINGE SC SCH (08:46)
[2024-10-15] MEDS: Vancomycin 1.5 GRAM/300 ML BAG 1.5 GM in Premix 1 BAG IVPB SCH ×2 (11:03→20:26)
[2024-10-15] MEDS: Insulin Lispro 100 UNIT/ML 10 ML VIAL SC PRN (11:26)
[2024-10-15] MEDS ORDERED: Magnesium Sulfate/D5W 1 GM/100 ML BAG IVPB SCH (15:00)
[2024-10-15] MEDS: Magnesium Sulfate/D5W 1 GM in Premix 1 BAG IVPB SCH (15:04)
[2024-10-15 17:19] VITALS: BMI 44.1
[2024-10-15] MEDS: Atorvastatin Calcium 10 MG TAB PO SCH (20:25)
[2024-10-15] MEDS: clonazePAM 0.5 MG TAB PO PRN (21:58)
[2024-10-16 04:24] LABS: #Basophils 0.03 10x3/uL (0.0-0.2); #Eosinophils 0.18 10x3/uL (0.0-0.5); #Neutrophils 7.55 10x3/uL (1.5-8.4); %Basophils 0.3 % (0.0-2.0); %Eosinophils 1.5 % (0.0-6.0); %Lymphocytes 27.1 % (18.0-47.0); %Neutrophils 64.6 % (40.0-75.0); Hemoglobin 15.2 g/dL (12.0-15.5); Mean Corpuscular Hemoglobin 31.5 pg (27.0-33.0); Mean Corpuscular Volume 95.4 fL (81.6-98.3); Mean Platelet Volume 10.3 fL (7.4-10.4); Platelet Count 226 10x3/uL (150-450); RBC Distribution Width 13.9 % (11.5-14.5); Red Blood Cell (RBC) Count 4.82 10x6/uL (3.90-5.03); White Blood Cell (WBC) Count 11.69 10x3/uL (3.5-10.5)
[2024-10-16 04:40] LABS: Vancomycin, Random 19.3 ug/mL (See Comment)
[2024-10-16 04:46] LABS: Anion Gap 13 mmol/L (10-20); BUN (Urea Nitrogen) 9 mg/dL (7.0-18.7); Calc. Creatinine Clearance 283 mL/min (70-130); Calcium 8.8 mg/dL (7.8-10.44); Carbon Dioxide 23 mmol/L (22-29); Chloride 108 mmol/L (98-107); Estimated GFR 120; Glucose 126 mg/dL (70-105); Magnesium 1.7 mg/dL (1.6-2.6); Potassium 4.3 mmol/L (3.5-5.1); Sodium 140 mmol/L (136-145)
[2024-10-16] MEDS: Vancomycin 1 GM in Sodium Chloride 0.9% 250 ML 250 ML IVPB SCH (08:24)
[2024-10-16 11:49] VITALS: BP 116/78; TEMP 97.9
[2024-10-16] MEDS ORDERED: Vancomycin 1 GM in Sodium Chloride 0.9% 250 ML 250 ML IVPB SCH ×2 (13:00→14:00)
== END 2024-10-16 11:51 | disposition home or self-care (01) | DRG 854 ==
LOC: CSHERS 16:55 → CSHTELE 20:17
PROVIDERS: ADMIT Family Medicine; ATTEND Internal Medicine
PROC: 3E03329 Introduction of Other Anti-infective into Peripheral Vein, Percutaneous Approach (ICD-10-PCS; principal; 2024-10-14)
PROC: 0SBP0ZZ Excision of Right Toe Phalangeal Joint, Open Approach (ICD-10-PCS; 2024-10-15)
DX: A41.9 Sepsis, unspecified organism (principal); K50.90 Crohn's disease, unspecified, without complications; L97.512 Non-pressure chronic ulcer of other part of right foot with fat layer exposed; L73.2 Hidradenitis suppurativa; E11.621 Type 2 diabetes mellitus with foot ulcer; E11.42 Type 2 diabetes mellitus with diabetic polyneuropathy; I10 Essential (primary) hypertension; E78.5 Hyperlipidemia, unspecified; F12.90 Cannabis use, unspecified, uncomplicated; F31.9 Bipolar disorder, unspecified; E66.01 Morbid (severe) obesity due to excess calories; E28.2 Polycystic ovarian syndrome; E83.42 Hypomagnesemia; R00.0 Tachycardia, unspecified; Z79.4 Long term (current) use of insulin; Z88.0 Allergy status to penicillin; Z88.8 Allergy status to other drugs, medicaments and biological substances; Z72.0 Tobacco use; Z79.899 Other long term (current) drug therapy
CPT/HCPCS: 36415; 36416; 80048; 80053; 80202; 83605; 83735; 84145; 84703; 85025; 87040; 93005; 93010; 94760; 94762; 96365; 96375; J0692; J1650; J1815; J2270; J3370; J3475; J7030; J7050

== ENCOUNTER 2024-10-29 13:12 | Emergency (ER) | payer MEDICAID ==
[2024-10-29 14:03] LABS: #Basophils 0.04 10x3/uL (0.0-0.2); #Eosinophils 0.14 10x3/uL (0.0-0.5); #Monocytes 0.72 10x3/uL (0.0-1.1); #Neutrophils 8.58 10x3/uL (1.5-8.4); %Basophils 0.3 % (0.0-2.0); %Eosinophils 1.2 % (0.0-6.0); %Lymphocytes 19.3 % (18.0-47.0); %Monocytes 6.1 % (0.0-10.0); %Neutrophils 72.8 % (40.0-75.0); Hematocrit 50.1 % (34.9-44.5); Hemoglobin 16.8 g/dL (12.0-15.5); Mean Corpuscular HGB CONC 33.5 g/dL (32.0-36.0); Mean Corpuscular Hemoglobin 31.5 pg (27.0-33.0); Mean Platelet Volume 10.3 fL (7.4-10.4); Platelet Count 248 10x3/uL (150-450); RBC Distribution Width 13.7 % (11.5-14.5); Red Blood Cell (RBC) Count 5.33 10x6/uL (3.90-5.03); White Blood Cell (WBC) Count 11.79 10x3/uL (3.5-10.5)
[2024-10-29 14:22] LABS: ALT (SGPT) 25 U/L (Less than 34); AST (SGOT) 16 U/L (11-34); Alkaline Phosphatase 63 U/L (40-110); Anion Gap 16 mmol/L (10-20); BUN (Urea Nitrogen) 10 mg/dL (7.0-18.7); Bilirubin, Total 0.3 mg/dL (0.3-1.2); Calc. Creatinine Clearance 0 mL/min (70-130); Carbon Dioxide 29 mmol/L (22-29); Chloride 96 mmol/L (98-107); Estimated GFR 113; Globulin 3.6 g/dL (2.4-3.5); Glucose 345 mg/dL (70-105); Potassium 4.4 mmol/L (3.5-5.1); Protein, Total 6.6 g/dL (6.0-8.3); Sodium 137 mmol/L (136-145)
[2024-10-29] MEDS ORDERED: Midazolam HCl 2 mg/2 ml Vial ONE (14:54)
[2024-10-29] MEDS ORDERED: Cefepime 2 GM VIAL ONE (15:48)
[2024-10-29] MEDS ORDERED: Ketorolac Tromethamine 30 MG (1 mL) VIAL ONE (16:00)
== END 2024-10-29 16:44 | disposition home or self-care (01) ==
LOC: CSHERS 13:12
DX: M86.9 Osteomyelitis, unspecified (principal); E11.9 Type 2 diabetes mellitus without complications; I10 Essential (primary) hypertension; F17.210 Nicotine dependence, cigarettes, uncomplicated
CPT/HCPCS: 80053; 83605; 84145; 85025; 96361; 96365; 96375; J0692; J1885; J2250

== ENCOUNTER 2024-12-29 14:37 | Outpatient (CLI) | payer OTHER | END 2024-12-29 14:38 | disposition home or self-care (01) | LOC: CSHWCC 14:37 | PROVIDERS: ATTEND Nurse Practitioner Family | DX: E11.621 Type 2 diabetes mellitus with foot ulcer (principal); L97.516 Non-pressure chronic ulcer of other part of right foot with bone involvement without evidence of necrosis; J44.9 Chronic obstructive pulmonary disease, unspecified; E11.59 Type 2 diabetes mellitus with other circulatory complications; Z72.0 Tobacco use ==